=== PATIENT | female | born 1995 | race Caucasian/White ===

== ENCOUNTER 2016-09-04 15:09 | Outpatient (CLI) | payer OTHER ==
--- NOTE | 2016-09-04 16:20 | DIAGNOSTIC IMAGING REPORT ---
PROCEDURE: XR RIBS BILATERAL INDICATION: PAIN ON LEFT SIDE TECHNIQUE: Three views of the ribs COMPARISON: None. FINDINGS: No fractures or osseous lesions are seen. IMPRESSION: 1. Negative ribs
== END 2016-09-04 23:00 ==
LOC: XR SRH 15:09
DX: R07.81 Pleurodynia (principal)